=== PATIENT | male | born 1995 | race African-American/Black ===

== ENCOUNTER 2016-06-07 11:02 | Emergency (ER) | payer OTHER ==
[2016-06-07 11:08] VITALS: BP 111/68; PULSE 72; TEMP 97.7; BMI 34.2
--- NOTE | 2016-06-07 11:49 | PDOC ---
History of Present Illness - General Chief Complaint: Cold Symptoms Stated Complaint: COUGH, CHEST TIGHNESS Time Seen by Provider: 06/07/16 11:20 History Source: Patient - History of Present Illness Timing/Duration: reports: other Associated Symptoms: reports: nasal congestion, nasal drainage. denies: chest pain/soreness, cough, earache, facial pain, fever/chills, muscle aches, sore throat Past History - Past Medical History Allergies/Adverse Reactions: Allergies Allergy/AdvReac Type Severity Reaction Status Date / Time No Known Allergies Allergy Verified 06/07/16 11:08 Home Medications: Ambulatory Orders Amoxicillin - [Amoxicillin 500mg Capsule -] 500 mg PO BID #20 capsule 07/17/15 Other medical history: NONE - Immunization History Immunization Up to Date: Yes - Psycho/Social/Smoking Cessation Hx Anxiety: No Suicidal Ideation: No Smoking History: Never smoked Have you smoked in the past 12 months: No Number of Cigarettes Smoked Daily: 6 Hx Alcohol Use: Yes (SOCIAL) Drug/Substance Use Hx: No Substance Use Type: Marijuana Review of Systems - Review of Systems Constitutional: No: Chills, Fever HEENTM: Yes: Nose Congestion. No: Ear Pain, Throat Pain Respiratory: Yes: Cough. No: Shortness of Breath *Physical Exam - Vital Signs Last Vital Signs Temp Pulse Resp BP Pulse Ox 97.7 F 72 20 111/68 99 06/07/16 11:06 06/07/16 11:06 06/07/16 11:06 06/07/16 11:06 06/07/16 11:06 - Physical Exam General Appearance: Yes: Appropriately Dressed. No: Apparent Distress HEENT: positive: Normal ENT Inspection, Normal Voice. negative: Scleral Icterus (R), Scleral Icterus (L) Neck: positive: Supple Respiratory/Chest: negative: Respiratory Distress Integumentary: positive: Dry, Warm Neurologic: positive: Fully Oriented, Alert, Normal Mood/Affect Medical Decision Making - Medical Decision Making 06/07/16 11:46 20 yo M, no sig hx, here w/ cough, nasal congestion and rhinorrhea x 2 days. No sob or chest tightness as documented at triage. Denies f/c. Pt wu and stable w / unremarkable exam. M/l viral. DC w/ symptomatic tx 06/07/16 11:49 *DC/Admit/Observation/Transfer Diagnosis at time of Disposition: URI (upper respiratory infection) Qualifiers: URI type: unspecified viral URI Qualified Code(s): J06.9 - Acute upper respiratory infection, unspecified; B97.89 - Other viral agents as the cause of diseases classified elsewhere - Discharge Dispostion Disposition: HOME Condition at time of disposition: Good - Patient Instructions Printed Discharge Instructions: DI for Viral Upper Respiratory Infection -- Adult
[2016-06-07] MEDS ORDERED: ACETAMINOPHEN 325 MG TABLET (FP) PO ONE (11:52)
[2016-06-07] MEDS ORDERED: ACETAMINOPHEN 325 MG TABLET (FP) ONE (11:55)
== END 2016-06-07 11:59 | disposition home or self-care (01) ==
LOC: JERFT 11:02
DX: J06.9 Acute upper respiratory infection, unspecified (principal); B97.89 Other viral agents as the cause of diseases classified elsewhere
CPT/HCPCS: 99281-25